=== PATIENT | female | born 1945 | race Caucasian/White ===

== ENCOUNTER → 2016-03-09 | Outpatient (CLI) | payer OTHER ==
[~2016-03-09] MED LIST: COMBIVENT; ULTRAM 50MG TAB50 MG PO
[2016-03-09 11:16] LABS: CREATININE 0.6 mg/dL (0.6-1.3)
== END ==
LOC: CAT 10:34
PROVIDERS: Internal Medicine
DX: I70.1 Atherosclerosis of renal artery (principal); I70.90 Unspecified atherosclerosis; K44.9 Diaphragmatic hernia without obstruction or gangrene

== ENCOUNTER → 2017-11-26 | Outpatient (CLI) | payer OTHER ==
--- NOTE | ~2017-11-26 | EKG ---
[address] [address] ELECTROCARDIOGRAM REPORT Name: ISACSHARMILA GIOVANNY Room #: REG [facility]#: [id number] Admission: 11/26/17 Attend Phys: Inder Currie MD Discharge: Date of : 47 Report #: [id number] THIS REPORT FOR: //name// [facility] Test Date: 2017-11-26 Test Time: 09:36:24 Pat Name: SHARMILA CHAU Department: Room: Gender: F Behavioral Assistant: Daniel COOPER : 1945 Requested By: Inder Currie Order Number: [id number] : Mynor Nixon Measurements Intervals [place] Rate: 56 P: 80 [place]: 160 QRS: 56 QRSD: 106 T: 59 QT: 440 QTc: 425 Interpretive Statements Sinus rhythm Compared to ECG 12/07/2001 12:50:57 ST (T wave) deviation no longer present Electronically Signed On 11-26-2017 17:47:07 CDT by Mynor Nixon [email or web address] <ELECTRONICALLY SIGNED> By: Mynor Nixon MD 11/26/17 1747 0936 5 Mynor Nixon MD /LAURIE
== END ==
LOC: CV 09:11
DX: E04.2 Nontoxic multinodular goiter (principal)

== ENCOUNTER → 2018-10-25 | Outpatient (CLI) | payer OTHER ==
[~2018-10-25] VITALS: Ht 154.9 cm; Wt 54.4 kg
[~2018-10-25] MED LIST changes: +ASPIR 8181 MG PO; +LIPITOR40 MG PO; +SYNTHROID100 MC1 PO; +TRELEGY ELLIPT1 EACH INH
--- NOTE | 2018-10-25 11:03 | P ---
[facility] [place] [address] PROCEDURE REPORT Name: CHAUSHARMILALuz BALTAZAR Room #: REG [facility] [id number] Admission: 10/25/18 Attend Phys: Augustine Sneed Discharge: Date of : 47 Report #: [id number] THIS REPORT FOR: //name// CC: Augustine Baez MD DATE OF SERVICE: 10/25/2018 PROCEDURE PERFORMED: Colonoscopy with biopsies. HISTORY OF PRESENT ILLNESS: The patient is a 73-year-old female with a history of colon polyps, last colonoscopy by Dr. Gomez in 2016. At that time, biopsies were positive for collagenous colitis. The patient has had a history of chronic diarrhea. She at one point was on Entocort. She states her diarrhea has resolved in 04/2018, but she is having some looser stools in general. She denies any blood in her stools. No abdominal pain. No family history of colon cancer. DESCRIPTION OF PROCEDURE: The risks and benefits of the procedure were explained to the patient, those risks including but not limited to bleeding, perforation and the risk of sedation. She understood these risks and gave informed consent. Sedation was given using propofol per anesthesia. Next, a digital rectal exam was initially performed, which was normal. Next, using a standard Olympus colonoscope, scope was placed in the patient's anus and advanced under direct vision to the cecum. The overall prep was excellent. In the cecum, there was a 3 mm sessile polyp. This was removed with cold forceps, otherwise normal. The ileocecal valve was normal. Ascending, transverse, descending and sigmoid colon were all normal. Random biopsies were obtained to rule out collagenous colitis. Rectal mucosa was normal. On retroflexion, no abnormalities were noted. The scope was then withdrawn and the procedure terminated. The patient tolerated the procedure well. IMPRESSION: 1. Small colonic polyp. 2. Otherwise, normal colonoscopy. RECOMMENDATIONS: 1. Await biopsy results. 2. If biopsies are consistent with collagenous colitis, we will discuss treatment options with the patient. If polyp is hyperplastic, repeat in 10 years; if adenomatous polyp, repeat in [address] [address] PROCEDURE REPORT Name: CHAUSHARMILA Room #: REG NISHA Adolfo#: [id number] Admission: 10/25/18 Attend Phys: Augustine Sneed Discharge: Date of : 47 Report #: [id number] Thank you for allowing me to participate in her care. <ELECTRONICALLY SIGNED> By: Augustine Cardenas MD 10/25/18 1103 0849 0949 Augustine Cardenas MD /nt
--- NOTE | 2018-10-28 16:06 | PATH ---
[facility] [place] [address] PATHOLOGY RPT PROCEDURE Name: SHARMILA CLARK Room #: REG NISHA Mata#: [id number] Admission: 10/25/18 Date of : 47 Discharge: Report #: [id number] Path Case #: [id number] [facility] Accession Number: [id number] . 01 Material submitted: . PART A: colon - RANDOM COLON BIOPSY HX CHOLANGITIS COLITIS PART B: cecum - BIOPSY POLYP AT CECUM . 01 Clinical history: . History of polyps, diarrhea, colon polyp. . 02 Diagnosis: A. "Random colon BX", biopsy: - Colonic mucosa with reactive changes including prominent lymphoid aggregate and focal active colitis; no dysplasia seen. (See comment). . B. "BX polyp at cecum", biopsy: - Tubular adenoma; no high grade dysplasia. . (LINDA:ilya; 10/28/2018) QLM/10/28/2018 . 02 Comment: Within specimen A, no lymphocytic or collagenous colitis is identified. Focal active colitis can be seen in resolving infectious type colitis, incidentally with bowel preparation and quiescent chronic idiopathic inflammatory bowel disease. No increased chronic inflammation or chronic architectural changes are identified. Clinical and endoscopic correlation is required. . (CLW:mmdedra; 10/28/2018) . 02 Electronically signed: . Inga Glover MD, Pathologist NPI- [id number] . 01 Gross description: . A. Received in formalin labeled "Sharmila Clark, random colon BX" is a 1.3 x 0.7 x 0.2 cm aggregate of tinajero-brown mucosa fragments. The specimen is submitted in A1. . B. Received in formalin labeled "Sharmila Clark, BX polyp at cecum" is a 0.3 x 0.3 x 0.2 cm fragment of tinajero-brown mucosa. The specimen is submitted in B1. ([facility] [place] [facility]; 10/27/2018) SYC/SYC . 02 Pathologist provided ICD-10: [place] [address] PATHOLOGY RPT PROCEDURE Name: SHARMILA CLARK PONDEROSA Room #: REG NISHA Mata#: [id number] Admission: 10/25/18 Date of : 47 Discharge: Report #: [id number] Path Case #: [id number] K52.9, D12.0 . 02 CPT . 884957, 099018 Specimen Comment: A courtesy copy of this report has been sent to Specimen Comment: [phone], . Specimen Comment: Report sent to / DR KAY Performed at: [address], [place], [place] [id number] MD Kameron Taylor MD Phone: [phone] Performed at: [address], [place], [place] [id number] MD Vero Kruger MD Phone: [phone]
== END | disposition home or self-care (01) ==
LOC: GI 07:00
DX: D12.0 Benign neoplasm of cecum (principal); K52.9 Noninfective gastroenteritis and colitis, unspecified; Z86.010 Personal history of colon polyps; J43.9 Emphysema, unspecified; E78.00 Pure hypercholesterolemia, unspecified; Z90.710 Acquired absence of both cervix and uterus; Z90.49 Acquired absence of other specified parts of digestive tract; Z87.891 Personal history of nicotine dependence; Z98.890 Other specified postprocedural states; Z85.41 Personal history of malignant neoplasm of cervix uteri; Z79.82 Long term (current) use of aspirin
CPT/HCPCS: 62110; 62900

== ENCOUNTER → 2019-10-28 | Outpatient (CLI) | payer OTHER | LOC: CAT 10:32 | PROVIDERS: ATTEND Pediatrics | DX: J43.9 Emphysema, unspecified (principal); J98.11 Atelectasis; I70.0 Atherosclerosis of aorta ==

== ENCOUNTER → 2020-12-16 | Outpatient (CLI) | payer OTHER | LOC: SJCVCIMAG 08:32 | PROVIDERS: ATTEND Internal Medicine Cardiovascular Disease | DX: I08.3 Combined rheumatic disorders of mitral, aortic and tricuspid valves (principal); R06.00 Dyspnea, unspecified; J44.9 Chronic obstructive pulmonary disease, unspecified; E78.00 Pure hypercholesterolemia, unspecified; F32.9 Major depressive disorder, single episode, unspecified; R93.1 Abnormal findings on diagnostic imaging of heart and coronary circulation; Z79.82 Long term (current) use of aspirin; Z79.899 Other long term (current) drug therapy; Z87.891 Personal history of nicotine dependence ==

== ENCOUNTER → 2020-12-30 | Outpatient (CLI) | payer OTHER ==
[~2020-12-30] VITALS: Ht 157.5 cm; Wt 61.2 kg
[~2020-12-30] MED LIST changes: +PROAIR HFA8.5 GM INH
[2020-12-30 11:37] VITALS: BP 122/72
--- NOTE | 2020-12-30 13:39 | CATHLAB ---
[facility] [place] [address] INVASIVE PROCEDURE REPORT Name: SHARMILA CHAU Room #: [facility] [id number] Admission: 12/30/20 Attend Phys: Ubaldo Crabtree MD Discharge: Date of : 47 Report #: [id number] THIS REPORT FOR: cc: Selam Baez MD, Melanie MD Park, Jin S. MD ~ APPROVED REPORT Study performed: 12/30/2020 11:49:59 Patient Details Patient Status: Out-Patient Room #: The patient is a 75 year-old female Event Personnel Ubaldo Crabtree Lifter Driver, Kendra Lopez RN RN, Kamala Bryan RTR Brandon Georges Ja'net RTR Monitor Procedures Performed Left Heart Cath w/or w/o Coronaries [id number] [facility] Art Access - R femoral artery* 01680 Initial Mod Sed Same Phys/QHP Gr5y [id number] Hemostasis with Manual pressure Indication Dyspnea, Positive stress test Risk Factors Chronic Lung DiseaseHypercholesterolemiaPhysical Activity, Coronary Artery DiseaseHypertension Procedure Narrative The patient was brought electively to the Cardiac Catheterization Laboratory and was prepped and draped in a sterile manner. The Right Groin^ was infiltrated with 1% Lidocaine subcutaneous anesthesia. A PINNACLE 4FR Sheath #[id number] sheath was inserted into the RFA^. Coronary angiography was performed using coronary diagnostic catheters. The right coronary system was accessed and visualized with a JR4 catheter. The left coronary system was accessed and visualized with a JL4 catheter. The left ventricle was accessed and visualized with a JR4 catheter. Left ventricular/Aortic Valve gradient assessed via catheter pullback. Left ventriculogram was performed in 30 degree projection. Hemostasis was obtained with manual pressure following sheath removal without any complications. The patient tolerated the procedure well and there were no complications associated with the [facility] [place] [address] INVASIVE PROCEDURE REPORT Name: SHARMILA CHAU Room #: REG [facility]#: [id number] Admission: 12/30/20 Attend Phys: Ubaldo Crabtree MD Discharge: Date of : 47 Report #: [id number] procedure. There was no hematoma. Intraoperative Conscious Sedation Sedation start time: 12:28 Case end Time: 12:54 Fentanyl 75 mcg Versed 1 mg Fluoro Time: 1.30 minutes Dose: DAP 1811.40 cGycm2 272 mGy Contrast Type and Amount: Omnipaque 45 ml Coronary Angiography The patient's coronary anatomy is right dominant. Diagnostic Cath Left Main The left main artery is a large-caliber vessel, appears angiographically normal. LAD The LAD is a moderate-sized caliber vessel, traverses the anterior wall and wraps around the apex. There is a moderate, discrete stenosis in the proximal segment with mild calcification, proximally 40 to 50%. Diagonal 1 This is a small to moderate-sized caliber vessel with a moderate ostial stenosis, 40%. Circumflex The left circumflex artery is a moderate-sized caliber vessel with mild disease in the proximal segment, 20%. OM1 This is a small to moderate-sized caliber vessel, patent with no flow-limiting lesions. OM2 This is a moderate-sized caliber vessel, originating from the distal left circumflex artery. This vessel appears angiographically normal. Right Coronary The RCA is a dominant vessel with mild disease in the proximal segment, 20%. R PDA This is a small to moderate-sized caliber vessel, patent with no flow-limiting lesions. RPLV This is a small to moderate-sized caliber vessel, patent with no flow-limiting lesions. Left Ventriculography Left Ventriculography was not performed. Ejection Fraction was >55% based off patient's Nuclear Cardiac Stress Test. An LVEDP was measured and there is no gradient across the outflow tract. Hemodynamics The aortic pressure is 169/64 mmHg with a mean of 106 mmHg. The left ventricular pressure is 171/13 mmHg with a mean of mmHg. The left [facility] [address] [place] [address] INVASIVE PROCEDURE REPORT Name: SHARMILA CHAU Room #: [facility] [id number] Admission: 12/30/20 Attend Phys: Ubaldo Crabtree MD Discharge: Date of : 47 Report #: [id number] ventricular end diastolic pressure is 44 mmHg. Pullback from the left ventricle to the aorta revealed no gradient across the aortic valve. Conclusion 1. 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 2. There is mild disease in the left circumflex artery and RCA. 3. This is a right dominant system. 4. There is normal LV systolic function. 5. Recommend aggressive risk factor management. <ELECTRONICALLY SIGNED> By: Ubaldo Crabtree MD 12/30/20 1339 1339 Ubaldo Crabtree MD /INF
== END | disposition home or self-care (01) ==
LOC: CATH 07:23
PROVIDERS: ATTEND Internal Medicine Cardiovascular Disease
DX: R94.39 Abnormal result of other cardiovascular function study (principal); I25.10 Atherosclerotic heart disease of native coronary artery without angina pectoris; R06.00 Dyspnea, unspecified; I10 Essential (primary) hypertension; E78.00 Pure hypercholesterolemia, unspecified; F32.9 Major depressive disorder, single episode, unspecified; J44.9 Chronic obstructive pulmonary disease, unspecified; Z98.890 Other specified postprocedural states; Z79.899 Other long term (current) drug therapy; Z85.41 Personal history of malignant neoplasm of cervix uteri; Z87.891 Personal history of nicotine dependence